=== PATIENT | female | born 1950 | race African-American/Black ===

== ENCOUNTER 2018-02-11 14:20 | Inpatient (IN) | payer OTHER ==
[~2018-02-11] VITALS: Ht 167.6 cm; Wt 108.0 kg
[2018-02-11] MEDS ORDERED: INSULIN (14:31)
[2018-02-11 16:10] LABS: CHLORIDE 105 mEq/L (98-107)
[2018-02-11 16:13] LABS: HEMATOCRIT. 37.5 % (36.0-48.0); HEMOGLOBIN. 12.1 g/dL (12.0-16.0); INR 1.1; MEAN CORPUSCULAR HEMOGLOBIN 29.6 pg (28.0-32.0); MEAN CORPUSCULAR VOLUME 91.5 fL (81.0-99.0); PARTIAL THROMBOPLASTIN TIME 25.2 sec (23.4-31.0); PLATELET 177 x1000/uL (130-400); PROTHROMBIN TIME 11.4 sec (9.4-11.6); RED CELL DISTRIBUTION WIDTH 15.5 % (11.6-14.6)
[2018-02-11 16:34] LABS: ATYPICAL LYMPHOCYTES 2; PLATELET ESTIMATE NORMAL
[2018-02-11] MEDS ORDERED: AZITHROMYCIN 500 MG in DEXT 5% WATER 250 ML IV SCH (17:00)
[2018-02-11] MEDS ORDERED: CEFTRIAXONE 1 G PREMIX 50 ML IV ONE (17:00)
[2018-02-11] MEDS ORDERED: IPRATROPIUM/ALBUTEROL 0.5-3(2.5)MG/3ML NEB HHN ONE (17:00)
[2018-02-11] MEDS ORDERED: LABETALOL HCL 20MG/4ML CARPUJECT IV ONE ×3 (18:45→21:15)
[2018-02-11] MEDS ORDERED: LABETALOL 5MG/ML SYR 20 MG/4 ML SYRINGE IV NR ×3 (19:00→21:30)
[2018-02-11] MEDS ORDERED: KETOROLAC 15MG/ML VIAL IV ONE (21:15)
[2018-02-11] MEDS ORDERED: AMLODIPINE 5MG TABLET PO ONE (21:15)
[2018-02-11] MEDS ORDERED: CLONIDINE 0.1MG TABLET PO PRN (21:30)
[2018-02-11] MEDS ORDERED: HYDRALAZINE 20MG/ML VIAL IV PRN (21:30)
[2018-02-11] MEDS ORDERED: NITROGLYCERIN 0.4MG TABLET SL SL PRN ×2 (21:30→23:30)
[2018-02-11] MEDS ORDERED: ONDANSETRON HCL 4MG/2ML VIAL IV PRN (21:30)
[2018-02-11] MEDS ORDERED: HYDROCODONE/ACETAMINOPHEN 5/325MG TABLET PO PRN (21:30)
[2018-02-11] MEDS ORDERED: GUAIFENESIN 200MG/10ML SUGAR FREE UDC PO PRN (21:30)
[2018-02-11] MEDS ORDERED: DIPHENHYDRAMINE 50MG/ML VIAL IV PRN (21:30)
[2018-02-11] MEDS ORDERED: ACETAMINOPHEN 650MG/20.3ML UDC GT PRN (21:30)
[2018-02-11] MEDS ORDERED: MAGNESIUM/ALUMINUM HYDROXIDE/SIMETHICONE 30ML UDC PO PRN (21:30)
[2018-02-11] MEDS ORDERED: DOCUSATE SODIUM 100MG CAPSULE PO PRN (21:30)
[2018-02-11] MEDS ORDERED: IPRATROPIUM/ALBUTEROL 0.5-3(2.5)MG/3ML NEB INH PRN (21:30)
[2018-02-11] MEDS ORDERED: NA PHOS,M-B/NA PHOS,DI-BA ENEMA 118ML PR PRN (21:30)
[2018-02-11] MEDS ORDERED: ACETAMINOPHEN 325MG TABLET PO PRN (21:30)
[2018-02-11] MEDS ORDERED: ACETAMINOPHEN 650MG SUPP PR PRN (21:30)
[2018-02-11 23:00] VITALS: BP 151/54
[2018-02-11] MEDS: AMLODIPINE 10MG TABLET PO SCH (23:00)
[2018-02-11] MEDS: BENAZEPRIL 10MG TABLET PO SCH (23:48)
[2018-02-12] VITALS (8 sets, daily range): BP systolic 136–216; BP diastolic 54–88
[2018-02-12] MEDS ORDERED: DEXTROSE 50% WATER 50ML SYRINGE IV PRN (00:30)
[2018-02-12 00:53] LABS: CREATINE KINASE MB FRACTION 0.9 ng/mL (0.5-3.6)
[2018-02-12] MEDS: IPRATROPIUM/ALBUTEROL 0.5-3(2.5)MG/3ML NEB INH SCH ×4 (01:53→21:47)
[2018-02-12] MEDS ORDERED: LANTUSUD SUBCUT (04:34)
[2018-02-12] MEDS: SODIUM CHLORIDE 0.9% INJ 3ML FLUSH IVF SCH ×3 (05:45→20:55)
[2018-02-12] MEDS: BLOOD SUGAR DIAGNOSTIC STRIP TEST SCH ×4 (06:49→20:55)
[2018-02-12] MEDS: INSULIN LISPRO 100 UNITS/ML SUBCUT SCH ×4 (08:10→21:00)
[2018-02-12] MEDS: BENAZEPRIL 10MG TABLET PO SCH (09:00)
[2018-02-12] MEDS: ENOXAPARIN 30MG/0.3ML SYR SUBCUT SCH ×2 (09:00→20:55)
[2018-02-12] MEDS: AMLODIPINE 10MG TABLET PO SCH (09:00)
[2018-02-12] MEDS ORDERED: INSULIN GLARGINE UD 100 UNITS/ML SYR SUBCUT SCH (10:00)
[2018-02-12 11:07] LABS: HEMATOCRIT. 33.2 % (36.0-48.0); MEAN CORPUSCULAR HEMOGLOBIN 30.3 pg (28.0-32.0); MEAN CORPUSCULAR VOLUME 91.9 fL (81.0-99.0); MEAN PLATELET VOLUME 10.9 fl (7.4-10.4); PLATELET 167 x1000/uL (130-400); RED BLOOD CELL COUNT 3.61 mill/uL (4.2-5.4)
[2018-02-12 11:42] LABS: CHLORIDE 103 mEq/L (98-107)
[2018-02-12 11:50] LABS: HDL CHOLESTEROL 76 mg/dL (40-59); LDL CHOLESTEROL 44 mg/dL (5-100)
[2018-02-12 11:52] LABS: CREATINE KINASE 131 IU/L (26-192)
[2018-02-12 11:54] LABS: CREATINE KINASE MB FRACTION 1.9 ng/mL (0.5-3.6)
[2018-02-12] MEDS ORDERED: COLC0.6T66 PO (13:34)
[2018-02-12] MEDS ORDERED: ATEN50TA PO (13:34)
[2018-02-12] MEDS ORDERED: ASPI-1159 PO (13:34)
[2018-02-12] MEDS ORDERED: ATOR20TA65 PO (13:34)
[2018-02-12] MEDS: BENZONATATE 100MG CAPSULE PO SCH ×2 (13:40→21:06)
[2018-02-12 13:47] LABS: PLATELET ESTIMATE NORMAL
[2018-02-12] MEDS ORDERED: DOCU-138 PO (14:05)
[2018-02-12] MEDS ORDERED: FURO20TA4 PO (14:05)
[2018-02-12] MEDS ORDERED: ALLO100T PO (14:05)
[2018-02-12] MEDS ORDERED: LOSA25TA12 PO (14:05)
[2018-02-12] MEDS ORDERED: FURO40TA5 PO (14:05)
[2018-02-12 14:30] LABS: HEMATOCRIT. 33.8 % (36.0-48.0); HEMOGLOBIN. 11.1 g/dL (12.0-16.0); MEAN CORPUSCULAR VOLUME 91.8 fL (81.0-99.0); MEAN PLATELET VOLUME 10.3 fl (7.4-10.4); PLATELET 160 x1000/uL (130-400); RED BLOOD CELL COUNT 3.69 mill/uL (4.2-5.4)
[2018-02-12 16:56] LABS: PLATELET ESTIMATE NORMAL
[2018-02-12] MEDS ORDERED: CEFTRIAXONE 1 G PREMIX 50 ML IV SCH (17:00)
[2018-02-12] MEDS ORDERED: AZITHROMYCIN 500 MG in DEXT 5% WATER 250 ML IV SCH (18:00)
[2018-02-12] MEDS ORDERED: FUROSEMIDE 40MG TABLET PO SCH (20:30)
[2018-02-12] MEDS ORDERED: ALLOPURINOL 100 MG TABLET PO SCH (20:30)
[2018-02-12] MEDS ORDERED: FUROSEMIDE 20MG TABLET PO SCH (20:30)
[2018-02-12] MEDS ORDERED: AMLODIPINE 10MG TABLET PO NR (20:30)
[2018-02-12] MEDS ORDERED: COLCHICINE 0.6MG TABLET PO SCH (20:30)
[2018-02-12] MEDS ORDERED: CLONIDINE 0.1MG TABLET PO NR (20:30)
[2018-02-12] MEDS ORDERED: DOCUSATE SODIUM 100MG CAPSULE PO SCH (20:30)
[2018-02-12] MEDS ORDERED: ASPIRIN 81MG EC TABLET PO SCH (20:30)
[2018-02-12] MEDS ORDERED: LOSARTAN POTASSIUM 25 MG TABLET PO SCH (20:30)
[2018-02-12] MEDS ORDERED: ATORVASTATIN CALCIUM 20MG TABLET PO SCH (21:00)
[2018-02-12] MEDS ORDERED: ATENOLOL 50 MG TABLET PO SCH (21:00)
[2018-02-12 21:31] LABS: CLARITY URINE CLOUDY (CLEAR); COLOR URINE YELLOW (YELLOW); KETONES URINE NEGATIVE (NEGATIVE); LEUKOCYTE ESTERASE URINE NEGATIVE (NEGATIVE); NITRITE URINE NEGATIVE (NEGATIVE); OCCULT BLOOD URINE NEGATIVE (NEGATIVE); PROTEIN URINE 4+ (NEGATIVE); SPECIFIC GRAVITY URINE 1.021 (1.005-1.030); UROBILINOGEN URINE 0.2 E.U./dL (0.2-1.0)
[2018-02-12 21:55] LABS: *AMPHETAMINES SCREEN URINE NEGATIVE (NEGATIVE); OPIATES URINE SCREEN NEGATIVE (NEGATIVE); PHENCYCLIDINE URINE SCREEN NEGATIVE (NEGATIVE)
[2018-02-12 21:56] LABS: *BARBITURATES SCREEN URINE NEGATIVE (NEGATIVE); *BENZODIAZEPINES SCREEN URINE NEGATIVE (NEGATIVE); CANNABINOID URINE SCREEN NEGATIVE (NEGATIVE)
[2018-02-12 21:57] LABS: *COCAINE SCREEN URINE NEGATIVE (NEGATIVE); METHADONE URINE SCREEN NEGATIVE (NEGATIVE)
[2018-02-13] MEDS ORDERED: AMLODIPINE 10MG TABLET PO SCH (09:00)
[2018-02-13] MEDS ORDERED: INSULIN GLARGINE UD 100 UNITS/ML SYR SUBCUT SCH (09:00)
== END 2018-02-12 23:50 | disposition short-term general hospital (02) | DRG 871 ==
LOC: ER 14:20 → 7WST 18:30 → ENRESERV 19:47 → 7WST 23:33
PROVIDERS: ADMIT Family Medicine; ATTEND Family Medicine
DX: A41.9 Sepsis, unspecified organism (principal); E43 Unspecified severe protein-calorie malnutrition; J96.00 Acute respiratory failure, unspecified whether with hypoxia or hypercapnia; N17.9 Acute kidney failure, unspecified; J84.9 Interstitial pulmonary disease, unspecified; J18.1 Lobar pneumonia, unspecified organism; E66.9 Obesity, unspecified; G47.33 Obstructive sleep apnea (adult) (pediatric); Z79.82 Long term (current) use of aspirin; I16.0 Hypertensive urgency; I10 Essential (primary) hypertension; E11.9 Type 2 diabetes mellitus without complications; Z68.38 Body mass index [BMI] 38.0-38.9, adult
CPT/HCPCS: 36415; 71045; 80048; 80053; 80061; 80305; 81003; 82550; 82553; 82962; 83036; 83690; 83880; 84484; 85025; 85379; 85610; 85730; 87040; 93005; 94640; 96365; 96366; 96368; 96375; 96376; 99285; J0360; J0456; J0696; J1650; J1815; J1885; J3490; J7050; J7060; J7620